=== PATIENT | male | born 1945 | race Caucasian/White ===

== ENCOUNTER 2020-08-19 10:38 | Outpatient (CLI) | payer MEDICARE, SELFPAY ==
--- NOTE | ~2020-08-19 | XR_ITS ---
EXAMINATION: XR hip BI 2V w AP pelvis EXAM DATE: 08/19/2020 11:28 INDICATION: M05.79 - Rheumatoid arthritis with rheumatoid factor of multiple sites without organ or s ystems involvement . TECHNIQUE: Each hip imaged independently (separate right and also left hip) 'frog leg' and frontal p rojections for interpretation. Frontal projection pelvis. There is no prior study for comparison. FINDINGS: No radiographic evidence of hip avascular necrosis. There is mild to moderate symmetric bi lateral hip primary osteoarthritis. There are no acute fractures or dislocations identified. There i s no subcutaneous gas. Calcifications in the pelvis are believed to be phleboliths. Advanced lower lumbar spondylosis. IMPRESSION: Mild to moderate left hip osteoarthritis. Reviewed, dictated and finalized at location A. [facility]
--- NOTE | ~2020-08-19 | XR_ITS ---
EXAMINATION: XR foot LT standing 2V, XR foot RT standing 2V DATE: 08/19/2020 11:28 INDICATION: Rheumatoid arthritis with rheumatoid factor TECHNIQUE: 1. Standing dorsal plantar and lateral views of the left foot were obtained. 2. Standing dorsal plantar and lateral views of the right foot were obtained. COMPARISON: None. FINDINGS: L2 symmetric mild bilateral pes planus with flattening of the longitudinal arches of both the left an d right feet. No fractures. Polyarticular osteoarthritis, moderate to severe at the right first metat arsophalangeal joint, mild at the left first metatarsophalangeal joint and minimal to mild at several of the remaining joints in the bilateral mid and forefeet. No evident erosions to suggest an inflamm atory arthritis. Soft tissues are unremarkable. IMPRESSION: 1. Bilateral pes planus. 2. Polyarticular osteoarthritis of both feet, moderate to severe at the right first metatarsophalange al joint and otherwise minimal to mild. 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 Bilateral pes planus. 2. Polyarticular osteoarthritis of both feet, moderate to severe at the right f irst metatarsophalangeal joint and otherwise minimal to mild.
--- NOTE | ~2020-08-19 | XR_ITS ---
EXAMINATION: XR hand BI arthritis min 3V EXAM DATE: 08/19/2020 11:28 INDICATION: M05.79 - Rheumatoid arthritis with rheumatoid factor of mult. TECHNIQUE: Right hand frontal, lateral and oblique projections obtained and reviewed. Left hand fron yuliya, lateral and oblique projections obtained and reviewed. Catchers projection of both hands. There is no prior study for comparison. FINDINGS: Right hand: There is severe loss of the 1st-3rd metacarpophalangeal joints, with mild subluxations, a lso subluxation at the 1st carpometacarpal joint with loss of this joint space. There is mild to mode rate interphalangeal primary osteoarthritis. There are no bony erosions identified. Mildly wide scap holunate joint space could indicate at least partial dissociation. Coalition of the capitate and hama te bones. Left hand: Approximately 1 cm gap between the scaphoid and lunate, complete scapholunate dissociation . Similar appearance to the 1st-3rd metacarpophalangeal joints has contralateral side, but with suspi cion of some periarticular erosions at the 2nd and 3rd metacarpal heads, could be results of rheumato id. There is moderate subluxation of left 1st carpometacarpal joint. There is mild to moderate interp halangeal primary osteoarthritis. IMPRESSION: 1. 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 2. 1st-3rd MCP subluxations, loss of joint spaces and left-sided metacarpal head erosions suspected. Could be sequela from rheumatoid. 3. 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 Reviewed, dictated and finalized at location A. Y TRUCK MECHANIC IMPRESSION: 1. 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 2. 1st-3rd MCP subluxations, loss of joint spaces and left-sided metacarpal he ad erosions suspected. Could be sequela from rheumatoid. 3. 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
--- NOTE | ~2020-08-19 | XR_ITS ---
EXAMINATION: XR knee RT 3V DATE: 08/19/2020 11:28 INDICATION: Rheumatoid arthritis with rheumatoid fracture of multiple sites. TECHNIQUE: 3 views of right knee were obtained. COMPARISON: None. FINDINGS: Bone alignment is normal. No fracture. There is mild tricompartmental osteoarthritis. No kn ee joint effusion. IMPRESSION: 1. Mild right knee osteoarthritis. Reviewed, dictated and finalized at location B. [employer]
== END 2020-08-19 10:39 | disposition home or self-care (01) ==
PROVIDERS: PCP Family Medicine; Visit Provider Internal Medicine
DX: E55.9 Vitamin D deficiency, unspecified (principal); M05.79 Rheumatoid arthritis with rheumatoid factor of multiple sites without organ or systems involvement; M10.09 Idiopathic gout, multiple sites; M19.071 Primary osteoarthritis, right ankle and foot; M19.072 Primary osteoarthritis, left ankle and foot; M16.12 Unilateral primary osteoarthritis, left hip; M19.041 Primary osteoarthritis, right hand; M19.042 Primary osteoarthritis, left hand; M17.11 Unilateral primary osteoarthritis, right knee
CPT/HCPCS: 73130; 73521; 73562; 73620